=== PATIENT | male | born 1990 | race Caucasian/White ===

== ENCOUNTER 2017-09-27 13:22 | Emergency (ER) | payer MEDICAID ==
[2017-09-27 13:38] VITALS: RESP 16; TEMP 98.4
--- NOTE | 2017-09-27 13:39 | EDPHY ---
H & P Time Seen by Provider: 09/27/17 13:39 HPI/ROS: CHIEF COMPLAINT: Intoxication HISTORY OF PRESENT ILLNESS: The patient is a 27-year-old man who was witnessed on the street shaking. It is unclear whether not he had a seizure or loss consciousness. The patient is not reliable. He answers "Malachi" to most questions that are asked. Does however know that he is in [place] and states that he did drugs today. He is is unable to tell me which kind. He denies alcohol. He denies seizure disorder. No obvious injuries. He also has with him a Ziploc bag full of tooth brushes, granola bars etc that states "from your [employer]ikh[employer] friends". REVIEW OF SYSTEMS: Unable to obtain secondary to condition EXAM: GENERAL: Sleeping but easily arousable, well-nourished, HEAD: Atraumatic, normocephalic. EYES: Pupils equal round and reactive to light, extraocular movements intact, sclera anicteric, conjunctiva are normal. ENT: TMs normal, nares patent, oropharynx clear without exudates. Moist mucous membranes. NECK: Normal range of motion, supple without lymphadenopathy or JVD. LUNGS: Breath sounds clear to auscultation bilaterally and equal. No wheezes rales or rhonchi. HEART: Regular rate and rhythm without murmurs, rubs or gallops. ABDOMEN: Soft, nontender, normoactive bowel sounds. No guarding, no rebound. No masses appreciated. BACK: No CVA tenderness, no spinal tenderness, step-offs or deformities EXTREMITIES: Normal range of motion, no pitting or edema. No clubbing or cyanosis. NEUROLOGICAL: Cranial nerves II through XII grossly intact. Normal speech, unsteady gait. 5/5 strength, normal movement in all extremities, normal sensation PSYCH: Unable to answer most questions. Mostly answers "Malachi" SKIN: Warm, dry, normal turgor, no visible rashes or lesions. Source: Patient, RN/MD, EMS Exam Limitations: Clinical condition - Medical/Surgical History Other PMH: Unable to obtain secondary to condition - Family History Significant Family History: No pertinent family hx Constitutional: Initial Vital Signs Temperature (C) 36.9 C 09/27/17 13:35 Heart Rate 110 H 09/27/17 13:35 Respiratory Rate 16 09/27/17 13:35 Blood Pressure 149/109 H 09/27/17 13:35 O2 Sat (%) 96 09/27/17 13:35 O2 Delivery Mode Room Air Medical Decision Making ED Course/Re-evaluation: The patient was trying to refuse EMS transport but was brought because he does not appear to have decision-making capacity. He does state that he has been doing drugs. There are no obvious signs of injury. We will obtain a toxicology panel and observe. 2:30 p.m. the patient's breath alcohol is 355. It is very unlikely that he had a seizure. This is consistent with his presentation. We will continue to observe. 3:30 p.m. the patient was able to get up and ambulate. 4:30 p.m. the patient is alert. He is able to ambulate. He is still breathalyzer 320. His phone Shawn to be charged and that he plans to call his girlfriend to pick him up. Denies any pain. 5:50 p.m. the patient has called his girlfriend. She is on her way to pick him up. Is requesting to be discharged. Differential Diagnosis: Partial list of the Differential diagnosis considered include but were not limited to; intoxication, head injury and although unlikely based on the history and physical exam, I also considered infection. - Data Points Laboratory Results: 09/27/17 13:30 Urine Opiates Screen NEGATIVE (NEGATIVE) Urine Barbiturates NEGATIVE (NEGATIVE) Ur Phencyclidine Scrn NEGATIVE (NEGATIVE) Ur Amphetamine Screen NEGATIVE (NEGATIVE) U Benzodiazepines Scrn NEGATIVE (NEGATIVE) Urine Cocaine Screen NEGATIVE (NEGATIVE) U Marijuana (THC) Screen NEGATIVE (NEGATIVE) Departure - Departure Disposition: Home, Routine, Self-Care Clinical Impression: Alcohol intoxication Qualifiers: Complication of substance-induced condition: with unspecified complication Qualified Code(s): F10.929 - Alcohol use, unspecified with intoxication, unspecified Condition: Fair Instructions: Alcohol Intoxication (ED) Referrals: Patient,NotPresent [Unknown] - As per Instructions
[2017-09-27 17:32] VITALS: BP 140/81; PULSE 102; O2SAT 96
== END 2017-09-27 17:30 | disposition home or self-care (01) ==
DX: F10.929 Alcohol use, unspecified with intoxication, unspecified (principal)
CPT/HCPCS: 80305

== ENCOUNTER 2017-10-19 15:01 | Emergency (ER) | payer MEDICAID ==
[2017-10-19 15:48] LABS: PLATELET COUNT 284 10^3/uL (150-400)
[2017-10-19] MEDS ORDERED: NS 1,000 ML IV ONE ×2 (15:52→16:25)
[2017-10-19] MEDS ORDERED: LORazepam 1 MG TAB PO PRN (16:28)
[2017-10-19] MEDS ORDERED: LORazepam 2 MG/ML INJ IVP PRN (16:28)
--- NOTE | 2017-10-19 16:28 | EDPHY ---
General - History Smoking Status: Current every day smoker Time Seen by Provider: 10/19/17 16:12 Narrative: CHIEF COMPLAINT: M1 HISTORY OF PRESENT ILLNESS: Patient presents on M1 hold from [facility] for suicidal ideation and alcohol abuse. He reportedly contacted his family today with threats of self-harm. He expresses intent will not disclose this plan. He says that he typically drinks 2 pt a day of vodka. Today he has had 1 pt between 10:30 a.m. And 2:00 p.m.. His girlfriend was notified by his sister with the thoughts of self-harm. [facility] was notified by his sister. They performed a well check on him and placed him on an M1 hold. He does admit to still feeling suicidal. When I asked him if he actually wants to commit suicide and , he hesitates and states "if I can find a reasonable way to do it." PSYCHIATRIC DIAGNOSES: Depression, attention deficit hyperactivity disorder PRIOR PSYCHIATRIC EVALUATIONS: Multiple inpatient evaluations in [place] M1/DETAINER: Just prior to arrival by [facility] Department REVIEW OF SYSTEMS: Ten systems reviewed and are negative unless otherwise noted in the HPI EXAMINATION General Appearance: Alert, no distress. Well-developed and well-nourished Head: normocephalic, atraumatic Eyes: Pupils equal and round, no conjunctival pallor or injection ENT, Mouth: Mucous membranes moist Neck: Normal inspection, supple, non-tender Respiratory: Lungs are clear to auscultation. No wheezing, rhonchi or crackles Cardiovascular: Tachycardic rate. Regular rhythm. No murmur. Good signs of perfusion Gastrointestinal: Abdomen is soft and nontender Back: non-tender, no bony abnormalities Neurological: GCS 15. A&O, nonfocal, normal gait. No tremor. Normal mentation Skin: Warm and dry, no rash Extremities: Nontender, no pedal edema Psychiatric: Flat affect. Depressed mood with suicidal ideation. He expresses intent but will not disclose this plan. Admits to alcohol abuse of 2 pt of vodka daily DIFFERENTIAL DIAGNOSES: Including but not limited to acute alcohol intoxication, suicidal ideation, alcohol abuse, dehydration, delirium tremens MDM: 4:25 p.m. Acute alcohol intoxication in a patient with chronic alcohol abuse as well as suicidal ideation. He has had a long history of suicidal ideation but no attempt recently. He is on an M1 hold. His laboratory studies are negative with the pending ETOH at this time. He has received 1 L IV fluid and is eating food. He has no tremor. He has no hyperthermia and no evidence of DTs. No evidence of encephalopathy. He will be cleared for medical evaluation following the ETOH level. 5:20 p.m. Alcohol level is at 378. This will likely preclude his evaluation at this time. He will remain here on an ED alcohol withdrawal protocol. At this time he still received IV fluid resuscitation. He is cooperative. He is awake and alert with no tremor or signs of delirium tremens. 6:05 p.m. At this time Dr. Pineda will assume care the patient. He is pending psychiatric evaluation. He is on the ED alcohol withdrawal protocol as needed. He is in no acute distress with no signs of delirium tremens. SUPERVISION: Patient was independently examined, but I discussed the case with my secondary supervising physician Dr. Pineda ([facility]) I took over care of this patient at 5:00 p.m.. The patient is here with alcohol intoxication and is on an M1 hold for suicidal ideation. 11:00 p.m., the patient still awaits evaluation by Behavioral Health. Care turned over to Dr. Harris at this time. (Isidra Pineda) The patient was stable during my shift. He was seen by the mental health worker. He was no longer suicidal. He is now sober. He will be discharged home. He was given resources for outpatient care. (Gisselle Harris) - Objective Vital Signs: Initial Vital Signs Temperature (C) 36.9 C 10/19/17 15:26 Heart Rate 114 H 10/19/17 15:26 Respiratory Rate 18 10/19/17 15:26 Blood Pressure 146/110 H 10/19/17 15:26 O2 Sat (%) 95 10/19/17 15:26 O2 Delivery Mode Room Air Allergies/Adverse Reactions: No Known Allergies Allergy (Unverified 10/19/17 15:25) Home Medications: Medication Instructions Recorded Lexapro 10/19/17 Laboratory Results: Laboratory Results 10/19/17 15:40 10/19/17 16:20 Ethyl Alcohol 360 mg/dL H mg/dL (0-10) Medications Given: Discontinued Medications Sodium Chloride (Ns) 1,000 mls @ 0 mls/hr IV ONCE ONE PRN Reason: Wide Open Stop: 10/19/17 15:53 Last Admin: 10/19/17 15:53 Dose: 1,000 mls Sodium Chloride (Ns) 1,000 mls @ 0 mls/hr IV ONCE ONE PRN Reason: Wide Open Stop: 10/19/17 16:26 Last Admin: 10/19/17 16:27 Dose: 1,000 mls Lorazepam (Ativan) 0 mg PO Q4H PRN; Protocol PRN Reason: Alcohol Withdrawal w/IV access Stop: 10/20/17 04:28 Last Admin: 10/19/17 17:17 Dose: 2 mg Departure - Departure Disposition: Home, Routine, Self-Care Clinical Impression: Suicidal ideation Alcohol intoxication Qualifiers: Complication of substance-induced condition: uncomplicated Qualified Code(s): F10.920 - Alcohol use, unspecified with intoxication, uncomplicated Condition: Fair Instructions: Alcohol Intoxication (ED) Additional Instructions: Please return to the emergency department if your worse in any way. Referrals: [facility] [Outside] - As per Instructions [facility] [Outside] - As per Instructions
[2017-10-20 04:07] VITALS: BP 134/76
== END 2017-10-20 04:07 | disposition home or self-care (01) ==
LOC: EDUNIT#
DX: R45.851 Suicidal ideations (principal); F10.920 Alcohol use, unspecified with intoxication, uncomplicated
CPT/HCPCS: 80305; G0480

== ENCOUNTER 2017-12-18 08:14 | Emergency (ER) | payer MEDICAID ==
[2017-12-18] MEDS ORDERED: HYDROmorphONE/DILAUDID 2 MG/ML INJ IVP ONE (08:41)
[2017-12-18] MEDS ORDERED: NS 1,000 ML IV ONE (08:41)
[2017-12-18] MEDS ORDERED: LORazepam 2 MG/ML INJ IVP ONE (08:42)
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
[2017-12-18] MEDS ORDERED: HYDROmorphONE/DILAUDID 1 MG/ML INJ ONE (08:49)
[2017-12-18 09:01] LABS: PLATELET COUNT 164 10^3/uL (150-400)
[2017-12-18 09:10] LABS: INR 1.17 (0.83-1.16); PROTIME(PATIENT) 15.1 SEC (12.0-15.0)
[2017-12-18] MEDS ORDERED: CHLORDIAZEPOXIDE 25MG PREPK#6 BTL TAKEHOME ONE (09:49)
[2017-12-18 10:05] VITALS: BP 133/89
--- NOTE | 2017-12-18 12:15 | ASMTCMCOM ---
CM Note CM Note Notes: Met with patient prior to discharge to discuss plans for follow up and resources. Patient explains that he has been living with his girlfriend but is now quite certain he will not be returning due to repeated issues with his drinking. Patient open in talking about struggles/history with alcohol. Admits to some out patient treatment in the past and has attended AA, but nothing recently. Of note: this is patient's 3rd visit to this ER in 3 months related to ETOH Patient has a court date in [place] on 12/25/17 for an existing DUI charge for which he thinks he will probably be "doing 10 days in assisted". He is considering returning to [place] after that to be closer to family. He has spoken to his mother and she has indicated that they will "figure out a way" to get him into treatment. I encouraged patient to consider going to the [facility] and he has agreed. He has a prescription for Librium that he will relinquish to the skidder driver for management of his symptoms at the [facility]. Patient understands that this will be a place to go to continue his withdrawal and make a plan re the logistics of staying in [place] until court next week. I also provided patient with information regarding the coordinated entry program and the detention system Patient staes that he is aware of both. Patient states he has "resources" as well regarding getting flight back to [place], etc. [employer] called and voucher provided for patient to the [facility]. I have called the [facility] to inform them of patient's plan and pending arrival, as well as that patient will be coming with prescription for Librium Date Signed: 12/18/2017 12:14 PM Electronically Signed By:Rachel Aguilar RN
== END 2017-12-18 10:14 | disposition home or self-care (01) ==
DX: F10.10 Alcohol abuse, uncomplicated (principal); F07.81 Postconcussional syndrome; F17.200 Nicotine dependence, unspecified, uncomplicated; E86.9 Volume depletion, unspecified
CPT/HCPCS: 96374; J1170; J2060